=== PATIENT | female | born 1995 | race Caucasian/White ===

== ENCOUNTER 2020-10-07 23:57 | Inpatient (IN) ==
[2020-10-08] MEDS ORDERED: MEPERIDINE 50 MG/1 ML VIAL IV PRN (00:06)
[2020-10-08] MEDS ORDERED: ONDANSETRON 4 MG/2 ML VIAL IV PRN ×2 (00:06→09:16)
[2020-10-08] MEDS ORDERED: BUTORPHANOL 2 MG/ML VIAL IV PRN (00:06)
[2020-10-08] MEDS ORDERED: LACTATED RINGERS 1,000 ML IV SCH ×3 (00:30→06:00)
[2020-10-08 00:39] LABS: Basophils % 0.2 % (0.0-0.8); Eosinophils # 0.1 10*3/uL (0.0-0.87); Eosinophils % 0.5 % (0.00-10.9); Hematocrit 35.8 VOL% (35.7-47.0); Hemoglobin 11.3 GM/DL (12.0-16.0); Immature Granulocytes % 1.1 %; Immature Granulocytes Absolute 0.15 #; Lymphocytes # 2.7 10*3/uL (1.4-4.0); Lymphocytes % 20.2 % (21.3-54.2); Mean Corpuscular HGB Conc 31.6 GM/DL (32-36); Mean Corpuscular Volume 79.6 FL (87-102); Mean Platelet Volume 9.6 FL (9.6-12.0); Platelet Count 230 T/CUMM (130-400); Red Cell Distribution Width 13.8 % (9.3-17.3); White Blood Count 13.1 T/CUMM (4-12)
[2020-10-08 00:53] LABS: Alanine Aminotransferase 17 U/L (13-56); Albumin 2.5 G/DL (3.4-5.0); Alkaline Phosphatase 140 U/L (45-117); Aspartate Amino Transferase 19 U/L (0-37); Bilirubin,Total < 0.39 MG/DL (0.2-1.0); Blood Urea Nitrogen 10 MG/DL (7-18); Calcium 8.3 MG/DL (8.5-10.1); Carbon Dioxide 19 MMOL/L (21-32); Estimated Glom Filtration Rate 129 ML/MIN; Glucose 83 MG/DL (74-106); Osmolality,Calculated 265.2 MOS/KG (273-304); Potassium 3.6 MMOL/L (3.5-5.1); Sodium 134 MMOL/L (136-145); Total Protein 6.9 G/DL (6.4-8.3)
[2020-10-08] MEDS ORDERED: LACTATED RINGERS 1,000 ML IV ONE (05:55)
[2020-10-08] MEDS ORDERED: CITRIC ACID/SODIUM CITRATE 30 ML UDCUP PO ONE (05:55)
[2020-10-08] MEDS ORDERED: LACTATED RINGERS 250 ML IV PRN (05:55)
[2020-10-08] MEDS ORDERED: FAMOTIDINE 20 MG/2 ML VIAL IV ONE (05:55)
[2020-10-08] MEDS ORDERED: NALOXONE 0.4 MG/ML VIAL IV PRN (05:55)
[2020-10-08] MEDS ORDERED: ePHEDrine 50 MG/ML VIAL IV PRN (05:55)
[2020-10-08] MEDS ORDERED: diphenhydrAMINE 50 MG/1 ML VIAL IV PRN (05:55)
[2020-10-08] MEDS ORDERED: OXYTOCIN/LR 20 UNIT/1,000 ML BAG IV SCH (06:00)
[2020-10-08] MEDS ORDERED: fentaNYL 2 MCG/ROPIV 0.2% EPID 100 ML EPIDURAL SCH (06:00)
[2020-10-08] MEDS ORDERED: miSOPROStoL 200 MCG TABLET ONE (08:24)
[2020-10-08] MEDS ORDERED: TRANEXAMIC ACID 1,000 MG/10 ML VIAL ONE (08:24)
[2020-10-08] MEDS ORDERED: METHYLERGONOVINE 0.2 MG/1 ML AMP ONE (08:25)
[2020-10-08] MEDS ORDERED: CARBOPROST TROMETHAMINE 250 MCG/ML AMP IM ONE (08:25)
[2020-10-08 09:02] LABS: Bilirubin,Urine Negative (Negative); Blood, Urine Negative (Negative); Glucose,Urine (UA) Negative (Negative); Ketones,Urine Negative (Negative); Mucus,Urine Occasional /LPF (Occasional); Nitrite,Urine Negative (Negative); Protein,Urine Negative; RBC,Urine 1 /HPF (0-4); Squamous Epithelial Cell,Urine Occasional /HPF (0-10); Urine Appearance CLEAR (Clear); Urine Color Yellow (Yellow); Urine Specific Gravity 1.018 (1.001-1.035); Urine Urobilinogen < 2.0 EU/DL (0.2-1.0); WBC,Urine <1 /HPF (0-6)
[2020-10-08 09:06] LABS: Cord Venous Blood HCO3 20.3 MMOL/L; Cord Venous Blood PCO2 48.7 MMHG; Cord Venous Blood PO2 17.3
[2020-10-08] MEDS ORDERED: LANOLIN 50% CREAM 0.3 OZ TUBE TOP PRN (09:16)
[2020-10-08] MEDS ORDERED: OXYTOCIN/LR 20 UNIT/1,000 ML BAG IV ONE (09:16)
[2020-10-08] MEDS ORDERED: oxyCODONE/ACETAMINOPHEN 5-325 MG TABLET PO PRN ×2 (09:16)
[2020-10-08] MEDS ORDERED: MEASLES/MUMPS/RUBELLA VACCINE 0.5 ML VIAL SUBCUT ONE (09:16)
[2020-10-08] MEDS ORDERED: BISACODYL 10 MG SUPP RECTAL PRN (09:16)
[2020-10-08] MEDS ORDERED: DIPH/TET/ACEL PERT BOOSTER VACCINE 0.5 ML VIAL IM ONE (09:16)
[2020-10-08] MEDS ORDERED: HYDROCORTISONE 2.5% RECTAL CREAM 30 GM TUBE TOP PRN (09:16)
[2020-10-08] MEDS ORDERED: ACETAMINOPHEN 325 MG TABLET PO PRN (09:16)
[2020-10-08] MEDS ORDERED: WITCH HAZEL PADS 100/JAR TOP PRN (09:16)
[2020-10-08] MEDS ORDERED: RHO(D) IMMUNE GLOBULIN 300 MCG SYRINGE IM ONE (09:16)
[2020-10-08] MEDS: IBUPROFEN 800 MG TABLET PO PRN ×2 (14:43→21:20)
[2020-10-08] MEDS: BENZOCAINE 20%/MENTHOL 0.5% SPRAY 56 GM CAN TOP PRN (18:20)
[2020-10-08] MEDS: DOCUSATE SODIUM 100 MG CAPSULE PO SCH (21:20)
[2020-10-09 06:18] LABS: Basophils % 0.2 % (0.0-0.8); Eosinophils # 0.1 10*3/uL (0.0-0.87); Eosinophils % 0.6 % (0.00-10.9); Hematocrit 32.3 VOL% (35.7-47.0); Hemoglobin 9.9 GM/DL (12.0-16.0); Immature Granulocytes % 0.8 %; Immature Granulocytes Absolute 0.09 #; Lymphocytes # 2.1 10*3/uL (1.4-4.0); Lymphocytes % 17.3 % (21.3-54.2); Mean Corpuscular HGB Conc 30.7 GM/DL (32-36); Mean Corpuscular Volume 80.8 FL (87-102); Mean Platelet Volume 9.4 FL (9.6-12.0); Monocytes % 7.4 % (1.7-12.7); Neutrophils % 73.7 % (38.7-73.9); Platelet Count 165 T/CUMM (130-400); Red Cell Distribution Width 13.9 % (9.3-17.3)
[2020-10-09] MEDS: IBUPROFEN 800 MG TABLET PO PRN ×2 (09:38→18:21)
[2020-10-09] MEDS: DOCUSATE SODIUM 100 MG CAPSULE PO SCH ×2 (09:39→21:33)
[2020-10-10] MEDS: IBUPROFEN 800 MG TABLET PO PRN ×3 (00:05→11:53)
[2020-10-10 07:35] VITALS: BP 113/69
[2020-10-10] MEDS: DOCUSATE SODIUM 100 MG CAPSULE PO SCH (08:57)
[2020-10-10] MEDS: BENZOCAINE 20%/MENTHOL 0.5% SPRAY 56 GM CAN TOP PRN (08:57)
== END 2020-10-10 13:20 | disposition home or self-care (01) | DRG 807 ==
LOC: N.LDOUT 23:57 → N.LD 23:58 → N.OB 10-08 12:57
PROVIDERS: ADMIT Obstetrics & Gynecology; ATTEND Obstetrics & Gynecology